=== PATIENT | female | born 1960 | race Two or more races ===

== ENCOUNTER 2022-07-07 08:02 | Emergency (ER) | payer MEDICAID ==
[~2022-07-07] VITALS: Ht 157.5 cm; Wt 74.8 kg
[2022-07-07 08:05] VITALS: BP 169/91
--- NOTE | 2022-07-07 08:10 | NUR ---
PT BIBA TO BED 8
--- NOTE | 2022-07-07 08:12 | NUR ---
MD SMITH AT BEDSIDE FOR EVALUATION
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
--- NOTE | 2022-07-07 08:27 | NUR ---
lab at bedside
--- NOTE | 2022-07-07 08:47 | NUR ---
pt taken to ct via silver
[2022-07-07 09:04] LABS: ALBUMIN 3.8 g/dL (3.4-5.0); ANION GAP 10.6 (8-16); CARBON DIOXIDE 29.3 mmol/L (21-32); CREATININE 0.5 mg/dL (0.6-1.3); POTASSIUM 3.9 mmol/L (3.5-5.1); TOTAL BILIRUBIN 0.4 mg/dL (0.0-1.0)
[2022-07-07 09:58] LABS: BASOPHILS % (AUTO) 0.3 % (0.0-2.0); EOSINOPHILS # (AUTO) 0.1 K/uL (0-0.4); EOSINOPHILS % (AUTO) 1.5 % (0.0-4.0); HEMATOCRIT 41.3 % (36-48); HEMOGLOBIN 14.5 g/dL (12.0-16.0); LYMPHOCYTES # (AUTO) 1.9 K/uL (2.5-16.5); LYMPHOCYTES % (AUTO) 41.3 % (20.5-51.1); MEAN CORPUSCULAR HEMOGLOBIN 31 pg (27-31); MEAN CORPUSCULAR HGB CONC 35 g/dL (33-37); MEAN CORPUSCULAR VOLUME 87.2 fL (80-94); MONOCYTES # (AUTO) 0.2 K/uL (0.8-1.0); MONOCYTES % (AUTO) 5.3 % (1.7-9.3); NEUTROPHILS # (AUTO) 2.4 K/uL (1.8-7.7); NEUTROPHILS % (AUTO) 51.6 % (42.2-75.2); PLATELET COUNT (AUTO) 193 K/uL (140-450); RED BLOOD CELL COUNT(AUTO) 4.74 MIL/uL (4.20-5.40); RED CELL DISTRIBUTION WIDTH 13.6 % (11.6-13.7); WHITE BLOOD COUNT (AUTO) 4.7 K/uL (4.8-10.8)
[2022-07-07] MEDS ORDERED: methocarbamoL 500 MG TAB PO STA (10:14)
[2022-07-07] MEDS ORDERED: KETOROLAC 15 MG/ML VIAL IM ONE (10:15)
[2022-07-07] MEDS ORDERED: ACETAMINOPHEN 325 MG TAB PO ONE (10:15)
[2022-07-07] MEDS ORDERED: IBUP-2213 PO (10:39)
[2022-07-07] MEDS ORDERED: METH-1681 PO (10:40)
[2022-07-07] MEDS ORDERED: LID5T TP (10:40)
[2022-07-07 10:43] VITALS: BP 125/71
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
--- NOTE | 2022-07-07 11:08 | NUR ---
The patient's care was reviewed and supervised by Ryanne Sánchez RN.
== END 2022-07-07 10:53 | disposition home or self-care (01) ==
LOC: MED 08:02
DX: S09.90XA Unspecified injury of head, initial encounter (principal); S19.9XXA Unspecified injury of neck, initial encounter; M54.50 Low back pain, unspecified; E11.9 Type 2 diabetes mellitus without complications; Z79.899 Other long term (current) drug therapy; V89.2XXA Person injured in unspecified motor-vehicle accident, traffic, initial encounter; Y93.89 Activity, other specified; Y92.89 Other specified places as the place of occurrence of the external cause; Y99.8 Other external cause status
CPT/HCPCS: 36415; 70450; 71045; 72125; 72128; 72131; 80053; 83690; 85025; 96372; 99285; J1885; Q0092